=== PATIENT | male | born 1990 | race Caucasian/White ===

== ENCOUNTER 2017-07-05 15:04 | Emergency (ER) | payer OTHER ==
[~2017-07-05] VITALS: Ht 182.9 cm; Wt 64.6 kg
[2017-07-05 16:03] LABS: POINT-OF-CARE METER ID UU14100415
[2017-07-05 18:57] VITALS: BP 113/70
== END 2017-07-05 18:30 | disposition home or self-care (01) ==
LOC: EME 15:04
PROC: 3E0234Z Introduction of Serum, Toxoid and Vaccine into Muscle, Percutaneous Approach (ICD-10-PCS; principal; 2017-07-05)
DX: S00.03XA Contusion of scalp, initial encounter (principal); S93.502A Unspecified sprain of left great toe, initial encounter; S50.311A Abrasion of right elbow, initial encounter; Z23 Encounter for immunization; W01.0XXA Fall on same level from slipping, tripping and stumbling without subsequent striking against object, initial encounter; Y93.02 Activity, running; Y92.828 Other wilderness area as the place of occurrence of the external cause
CPT/HCPCS: 70450; 73080; 73660; 82948; 99281; 99285